=== PATIENT | female | born 1985 | race Two or more races ===

== ENCOUNTER 2017-05-05 07:52 | Inpatient (IN) | payer OTHER ==
[2017-05-03 13:22] VITALS: BMI 38.0
[2017-05-05] MEDS ORDERED: PNEUMOC 13-VAL CONJ-DIP CRM/PF 0.5 ML DISP.SYRIN IM ONE (08:40)
--- NOTE | 2017-05-05 09:42 | HP ---
Admitting History and Physical - Admission Chief Complaint: Morbid obesity History Source: Patient, Medical Record Limitations to Obtaining History: No Limitations - Past Medical History Cardiovascular: Yes: Hyperlipdemia Pulmonary: Yes: Asthma ...LMP: 04/18/17 Infectious Disease: Yes: STD's (txed for gc and chlamydia) Psych: Yes: Depression (was on lexopro) - Past Surgical History Past Surgical History: Yes: Cholecystectomy, - Smoking History Smoking history: Current some day smoker Have you smoked in the past 12 months: No Aproximately how many cigarettes per day: 5 - Alcohol/Substance Use Hx Alcohol Use: Yes (2-3 beer weekend) - Social History History of Recent Travel: No Home Medications - Allergies Allergies/Adverse Reactions: Allergies Allergy/AdvReac Type Severity Reaction Status Date / Time Penicillins Allergy Mild Rash Verified 05/05/17 08:50 seafood Allergy Severe Difficulty Uncoded 05/05/17 08:50 Breathing - Home Medications Home Medications: Ambulatory Orders Alprazolam [Xanax] 0.5 mg PO PRN PRN 05/03/17 Quetiapine Fumarate [Seroquel] 50 mg PO HS 05/03/17 Ibuprofen 200 mg PO PRN PRN 05/05/17 Family Disease History - Family Disease History Family History: Unremarkable Review of Systems - Review of Systems Constitutional: denies: Chills, Fever HENT: reports: No Symptoms Neck: reports: No Symptoms Cardiovascular: denies: Chest Pain Respiratory: denies: Cough Gastrointestinal: denies: Abdominal Pain Neurological: denies: Change in LOC Pain Intensity: 0 Physical Examination Vital Signs: Vital Signs Temperature 98.2 F 05/05/17 08:46 Pulse Rate 65 05/05/17 08:46 Respiratory Rate 20 05/05/17 08:46 Blood Pressure 109/55 05/05/17 08:46 O2 Sat by Pulse Oximetry (%) 100 05/05/17 08:45 Constitutional: Yes: Calm Eyes: Yes: Other Neck: Yes: Supple Cardiovascular: Yes: Regular Rate and Rhythm Respiratory: Yes: CTA Bilaterally Gastrointestinal: Yes: Soft, Abdomen, Obese. No: Tenderness Extremities: Yes: WNL Neurological: Yes: Alert, Oriented Problem List - Problems (1) Morbid obesity due to excess calories Code(s): E66.01 - MORBID (SEVERE) OBESITY DUE TO EXCESS CALORIES Assessment/Plan Laparoscopic possible open vertical sleeve gastrectomy possible liver biopsy upper endoscopy
[2017-05-05] MEDS ORDERED: fentaNYL CITRATE 250 MCG/5 ML VIAL ONE (09:50)
[2017-05-05] MEDS ORDERED: KETOROLAC TROMETHAMINE 30 MG/1 ML VIAL ONE (09:50)
[2017-05-05] MEDS ORDERED: DEXAMETHASONE SOD PHOSPHATE 4 MG/1 ML VIAL ONE (09:50)
[2017-05-05] MEDS ORDERED: MIDAZOLAM HCL 2 MG/2 ML SINGLE DOSE VIAL ONE (09:51)
[2017-05-05] MEDS ORDERED: PROPOFOL 20 ML ONE (09:51)
[2017-05-05] MEDS ORDERED: ROCURONIUM BROMIDE 50 MG/5 ML VIAL ONE ×2 (09:51→10:50)
[2017-05-05] MEDS ORDERED: SUCCINYLCHOLINE CHLORIDE 200 MG/10 ML VIAL ONE (09:51)
[2017-05-05] MEDS ORDERED: CLINDAMYCIN PHOSPHATE 900 MG/6 ML VIAL IVPB ONE (10:07)
[2017-05-05] MEDS ORDERED: NEOSTIGMINE METHYLSULFATE 0.5 MG/ML - 10 ML MDV ONE (11:34)
[2017-05-05] MEDS ORDERED: GLYCOPYRROLATE 0.2 MG/1 ML VIAL ONE (11:36)
[2017-05-05] MEDS ORDERED: BUPIVACAINE HCL/PF 0.5% (5MG/ML) 10 ML VIAL IJ ONE (11:44)
[2017-05-05] MEDS ORDERED: oxyCODONE HCL 5 MG TABLET PO PRN (12:16)
[2017-05-05] MEDS ORDERED: ONDANSETRON 4 MG/2 ML VIAL IVPUSH PRN (12:16)
[2017-05-05] MEDS ORDERED: PROMETHAZINE HCL 25 MG/1 ML VIAL IVPUSH PRN (12:16)
[2017-05-05] MEDS ORDERED: ONDANSETRON 4 MG/2 ML VIAL ONE (12:21)
[2017-05-05] MEDS ORDERED: ONDANSETRON 4 MG/2 ML VIAL IVPUSH ONE (12:27)
[2017-05-05] MEDS ORDERED: PROMETHAZINE HCL 25 MG/1 ML VIAL ONE (12:30)
[2017-05-05] MEDS ORDERED: LACTATED RINGERS SOLUTION 1,000 ML IV SCH (12:30)
[2017-05-05] MEDS ORDERED: PROMETHAZINE HCL 25 MG/1 ML VIAL IVPUSH ONE ×2 (12:32→12:47)
--- NOTE | 2017-05-05 12:45 | OP ---
Operative Note - Note: Operative Date: 05/05/17 Pre-Operative Diagnosis: Morbid obesity Operation: Laparoscopic vertical sleeve gastrectomy, wedge liver biopsy, EGD Post-Operative Diagnosis: Other (MOrbid obesity, heaptomegaly) Surgeon: Florentino Chacon Art Librarian: Maxx Quan Anesthesia: General Specimens Removed: Greater curvature of stomach. Left lobe liver biopsy Estimated Blood Loss (mls): 30 Drains & Tubes with Location: 36 Fr Bougie Operative Report Dictated: Yes
[2017-05-05 13:05] LABS: ALBUMIN 4.1 g/dl (3.4-5.0); ALK PHOS 38 U/L (45-117); ANION GAP 6 (8-16); BILIRUBIN,TOTAL 0.3 mg/dL (0.2-1.0); BLOOD UREA NITROGEN 12 mg/dL (7-18); CALCIUM 8.3 mg/dL (8.5-10.1); CHLORIDE 105 mmol/L (98-107); CO2 28 mmol/L (21-32); GLUCOSE,RANDOM 124 mg/dL (74-106); POTASSIUM 4.2 mmol/L (3.5-5.1); SGOT/AST 52 U/L (15-37); SGPT/ALT 67 U/L (12-78); SODIUM 139 mmol/L (136-145); TOT PROT 7.3 g/dl (6.4-8.2)
[2017-05-05] MEDS ORDERED: METOCLOPRAMIDE HCL INJECTION 10 MG/2 ML VIAL ONE (13:05)
[2017-05-05] MEDS ORDERED: FAMOTIDINE 20 MG/50 ML IVPB 20 MG/50 ML MG IVPB ONE (13:06)
[2017-05-05] MEDS ORDERED: ACETAMINOPHEN INJECTION 100 ML IVPB ONE (13:06)
[2017-05-05 13:08] LABS: BASO % 0.3 % (0-2.0); EOS % 1.8 % (0-4.5); HEMATOCRIT 38.2 % (32.4-45.2); HEMOGLOBIN 12.1 GM/dL (10.7-15.3); MCH 26.3 pg (25.7-33.7); MCHC 31.6 g/dl (32.0-36.0); MEAN CELL VOLUME 83.4 fl (80-96); NEUT % 73.9 % (42.8-82.8); PLATELET COUNT 193 K/MM3 (134-434); RBC 4.58 M/mm3 (3.60-5.2); RDW 14.4 % (11.6-15.6)
--- NOTE | 2017-05-05 13:32 | SPEC ---
DATE OF OPERATION: 05/05/2017 PREOPERATIVE DIAGNOSIS: Morbid obesity, asthma, hypercholesterolemia, and body mass index of 38.1. POSTOPERATIVE DIAGNOSIS: Morbid obesity, asthma, hypercholesterolemia, body mass index of 38.1, and hepatomegaly. PROCEDURE PERFORMED: Laparoscopic vertical sleeve gastrectomy, laparoscopic wedge liver biopsy, upper endoscopy/esophagogastroduodenoscopy. SURGEON: Florentino Chacon MD SPECIMEN: Greater curvature of the stomach, wedge liver biopsy of the left lobe of the liver. ESTIMATED BLOOD LOSS: 30 mL. DRAINS: None. BOUGIE: 36 Dominican. ANESTHESIA: GET. REASON FOR PROCEDURE: This 31-year-old female presented to the office for weight loss options. After describing the different options, she decided with a laparoscopic, possible open, vertical sleeve gastrectomy, possible wedge liver biopsy, possible endoscopy. The risks and benefits of the procedure were explained. RISKS AND BENEFITS: After describing the different options for weight loss management, the patient decided to proceed with a laparoscopic, possible open vertical sleeve gastrectomy. The patient was seen by the respective subspecialties and cleared for surgery. The risks and benefits of the procedure were explained. These included bleeding, infection, hernia, ID, DVT, PE, injury to surrounding structures including the liver, colon, bowel, spleen, esophagus, vessel injury, nerve injury, weight regain, gastric leak, staple line leak, sleeve leak, obstruction, vitamin deficiency, hair loss and as some of the possible complications. The patient understood and signed informed consent. DESCRIPTION OF PROCEDURE: The patient was placed supine on the operating room table. The patient underwent general endotracheal intubation. A He catheter was inserted. The arms were brought out at 90 degrees and secured. A footboard was placed and the legs were secured laterally with padding. The abdomen was prepped and draped in the usual sterile fashion. A timeout was performed. An incision was made in the left upper quadrant and a Veress needle inserted. Pneumoperitoneum was established. Subsequently, the Veress needle was removed and a 12-mm trocar was placed. The laparoscopic camera was then inserted and inspection of the abdominal cavity was performed. An incision was then made in the supraumbilical area and a 15-mm trocar was placed under direct visualization. A 5-mm trocar was then placed in the right upper quadrant and a 5-mm trocar was placed below the left subcostal margin. A stab wound was made in the subxiphoid area and a Amy clamp inserted and removed to dilate the tract. A Sudeep liver retractor was inserted. The post was secured at the bedside by the nursing staff. The patient was placed in steep reverse Trendelenburg position and the Sudeep liver retractor was used to secure the liver towards the anterior abdominal wall. The pylorus was identified and 6 cm proximal to it, the lesser sac was entered using the LigaSure device. All lateral attachments to the greater curvature of the stomach, including the short gastric vessels, were ligated using the LigaSure device toward the gastrosplenic and gastrophrenic ligaments. Once this was done in its entirety, it was confirmed that all tubes within the nasal or oropharyngeal cavity, including a temperature probe, was removed by Anesthesia. The bougie was then inserted by Anesthesia. Transection of the stomach was then begun staying adjacent to the bougie but away from the angularis. Transection of the stomach was performed near the portion of the stomach where the lesser sac was entered. Two laparoscopic Endo-MARY black seble were used at this location. Laparoscopic Endo MARY purple staple loads were then used for the remainder of the transection until the greater curvature of the stomach was fully transected. This was done staying close to the bougie. Care was taken to stay away from the angle of His cephalad. The staple line was then inspected. Hemostasis was identified. A leak test was then performed. It was clamped distally to the staple line. Irrigation solution was placed in the left upper quadrant and air was insufflated by Anesthesia into the sleeve. No leaks were identified. No obstruction was identified. This was done through the entirety of the staple line. At this point, the irrigation solution was suctioned and again, hemostasis was noted. A wedge liver biopsy was then performed. The left lobe of the liver was identified and a portion of the edge was grasped. Using electrocautery, a wedge of the liver was excised. This was removed and sent off the field as specimen. Hemostasis at the site of the wedge liver biopsy was attained using electrocautery. The 15-mm supraumbilical trocar was then removed and the greater curvature specimen removed from the site using a sponge stick schmidt. The specimen was inspected and a Veress needle inserted. The specimen insufflated adequately and no leak was identified. The staple line was noted to be intact. A Emigdio-Eliana device was then used to temporarily close the fascia with a 0 Vicryl suture at the site. The 15-mm trocar was then reinserted and the 12-mm trocar in the left upper quadrant was removed. The fascia at this site was then closed using the Emigdio-Eliana device with a 0 Vicryl suture. Again, hemostasis was noted. The Sudeep liver retractor was then removed under direct visualization. Pneumoperitoneum was desufflated and the fascial sutures were secured. Hemostasis was noted at all incision sites and Marcaine was injected at all incision sites. All incision sites were closed using 4-0 Biosyn. Sterile dressings were applied. In addition, endoscopy was performed at the end. The endoscope was inserted into the patient's mouth. The esophagus, stomach, GE junction, gastric pouch and staple line were inspected. Hemostasis was noted. No leak or obstruction was identified. The stomach was suctioned and the endoscope removed. The patient tolerated the procedure well and was transferred to the recovery room in stable condition with the He catheter intact. The patient was transferred to telemetry for further monitoring. Bindu [id number]
[2017-05-05] MEDS ORDERED: FAMOTIDINE 20 MG PREMIXED IVPB IVPB ONE (13:36)
[2017-05-05] MEDS ORDERED: ACETAMINOPHEN 1000 MG/100 ML VIAL (NON FORMULARY) IVPB ONE (13:37)
[2017-05-05] MEDS ORDERED: HYDROmorphone HCL CARPU-JECT 2 MG/1 ML DISP.SYRIN ONE (13:38)
[2017-05-05] MEDS ORDERED: HYDROmorphone HCL CARPU-JECT 2 MG/1 ML DISP.SYRIN IVPUSH ONE ×2 (13:56→14:15)
[2017-05-05] MEDS ORDERED: METOCLOPRAMIDE HCL INJECTION 10 MG/2 ML VIAL IVPUSH ONE (15:15)
[2017-05-05] MEDS: SODIUM CHLORIDE 1,000 ML IV SCH (16:00)
[2017-05-05] MEDS: ONDANSETRON 4 MG/2 ML VIAL IVPUSH SCH ×2 (17:12→21:22)
[2017-05-05] MEDS ORDERED: FLU VACCINE QUAD 60 MCG/0.5 ML (MDV 17-18) IM ONE (18:30)
[2017-05-05] MEDS ORDERED: PNEUMOCOCCAL 23 VACCINE 0.5 ML VIAL IM ONE (18:30)
[2017-05-05] MEDS: ACETAMINOPHEN 1000 MG/100 ML VIAL (NON FORMULARY) IVPB SCH (18:34)
[2017-05-05] MEDS: METOCLOPRAMIDE HCL INJECTION 10 MG/2 ML VIAL IVPUSH SCH (18:34)
[2017-05-05] MEDS: ENOXAPARIN NA (PORCINE) 40 MG/0.4 ML DISP.SYRIN SQ SCH (21:22)
[2017-05-05] MEDS: FAMOTIDINE 20 MG/50 ML IVPB 20 MG/50 ML MG IVPB SCH (21:22)
[2017-05-05] MEDS: HYDROmorphone HCL CARPU-JECT 1 MG/1 ML DISP.SYRIN IVPB PRN (21:25)
[2017-05-06] MEDS: ACETAMINOPHEN 1000 MG/100 ML VIAL (NON FORMULARY) IVPB SCH ×2 (00:36→06:02)
[2017-05-06] MEDS: METOCLOPRAMIDE HCL INJECTION 10 MG/2 ML VIAL IVPUSH SCH ×4 (00:38→20:36)
[2017-05-06] MEDS: ONDANSETRON 4 MG/2 ML VIAL IVPUSH SCH ×6 (00:38→20:37)
[2017-05-06] MEDS: HYDROmorphone HCL CARPU-JECT 1 MG/1 ML DISP.SYRIN IVPB PRN ×5 (03:25→20:38)
[2017-05-06 08:17] LABS: HEMATOCRIT 26.4 % (32.4-45.2); HEMOGLOBIN 8.5 GM/dL (10.7-15.3); MCH 26.4 pg (25.7-33.7); MCHC 32.1 g/dl (32.0-36.0); MEAN CELL VOLUME 82.4 fl (80-96); PLATELET COUNT 170 K/MM3 (134-434); WHITE BLOOD COUNT 11.9 K/mm3 (4.0-10.0)
[2017-05-06] MEDS: FAMOTIDINE 20 MG/50 ML IVPB 20 MG/50 ML MG IVPB SCH ×2 (09:13→22:02)
[2017-05-06] MEDS: ENOXAPARIN NA (PORCINE) 40 MG/0.4 ML DISP.SYRIN SQ SCH ×2 (09:13→22:02)
[2017-05-06 09:18] LABS: ALBUMIN 3.5 g/dl (3.4-5.0); ANION GAP 7 (8-16); BLOOD UREA NITROGEN 9 mg/dL (7-18); CALCIUM 7.3 mg/dL (8.5-10.1); CHLORIDE 105 mmol/L (98-107); CO2 26 mmol/L (21-32); GLUCOSE,RANDOM 91 mg/dL (74-106); POTASSIUM 3.5 mmol/L (3.5-5.1); SODIUM 138 mmol/L (136-145)
[2017-05-06 09:23] LABS: ALK PHOS 30 U/L (45-117); BILIRUBIN,TOTAL 0.8 mg/dL (0.2-1.0); CREATININE 0.8 mg/dL (0.55-1.02); SGOT/AST 86 U/L (15-37); SGPT/ALT 109 U/L (12-78)
[2017-05-06 11:26] LABS: HEMATOCRIT 26.2 % (32.4-45.2); HEMOGLOBIN 8.4 GM/dL (10.7-15.3); MCH 26.3 pg (25.7-33.7); MCHC 32.1 g/dl (32.0-36.0); MEAN CELL VOLUME 82.1 fl (80-96); MEAN PLT VOLUME 8.5 fl (7.5-11.1); PLATELET COUNT 169 K/MM3 (134-434); RBC 3.19 M/mm3 (3.60-5.2); RDW 13.9 % (11.6-15.6); WHITE BLOOD COUNT 11.9 K/mm3 (4.0-10.0)
--- NOTE | 2017-05-06 12:10 | PN ---
Progress Note (short form) - Note Progress Note: POD #1 Alert. Doing well. C/o incisional tenderness. Adequate pain control via prn meds. Denies n/v/f/c, CP, palpitations or SOB. Afebrile. AVSS. UGI 05/06/17: no leak, extravastion or gastric outlet obstruction Gen: nad. ABD: morbidly obese habitus. All surgical ports c/d/i LE: SCDs bilat. Soft. NT. Problem List - Problems (1) Morbid obesity due to excess calories Assessment/Plan: POD #1 s/p Laparoscopic vertical sleeve gastrectomy, wedge liver biopsy, EGD Bariatric stage 1 diet ordered OOB and cont to ambulate. Pain meds prn DC planning Code(s): E66.01 - MORBID (SEVERE) OBESITY DUE TO EXCESS CALORIES
--- NOTE | 2017-05-06 13:33 | PATH ---
Surgical Pathology Report Patient Name: KEVIN WISE [facility]. Rec. #: [id number] /Age/Gender: 1985 (Age: 31) / F Account: [id number] Location: 4 W TELEMETRY U Taken: 05/05/2017 Received: 05/05/2017 Reported: 05/06/2017 Physicians: Florentino Chacon M.D. Specimen(s) Received A: LIVER BIOPSY B: GREATER CURVATURE OF STOMACH Clinical History Morbid obesity Final Diagnosis A. 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 IRON STAIN IS NEGATIVE FOR SIDEROSIS. B. STOMACH, GREATER CURVATURE, SLEEVE GASTRECTOMY: PORTION OF STOMACH FOCAL MILD CHRONIC GASTRITIS. IMMUNOSTAIN FOR H. PYLORI IS NEGATIVE. Electronically Signed Dario Dan M.D. Gross Description A. Received in formalin labeled "liver biopsy," is a 2.7 x 1.8 x 0.9 cm haji-pink, irregular portion of liver tissue. The specimen is serially sectioned and entirely submitted in 2 cassettes. B. Received in formalin, labeled "greater curvature of stomach," is a 139 gram, 18.5 x 4.5 x 3.0 cm. portion of stomach with a stapled margin of resection. The serosa is haji-turner with minimal attached fat. The mucosa is haji-pink with normal folds. No mucosal masses are identified. Outreach Nurse sections are submitted in one cassette. /05/05/2017 saudi05/05/2017
[2017-05-06] MEDS: SODIUM CHLORIDE 1,000 ML IV SCH (17:06)
--- NOTE | 2017-05-06 19:59 | PN ---
Progress Note (short form) - Note Progress Note: POD 1 Pain controlled No nausea Vital Signs Period Temp Pulse Resp BP Sys/Gallo Pulse Ox Last 24 Hr 98.8 F-99.9 F 74-94 20-22 98-128/53-72 98-100 Abd soft, ND, NT CBC,CMP WBC 11.9 K/mm3 (4.0-10.0) H 05/06/17 11:08 RBC 3.19 M/mm3 (3.60-5.2) L 05/06/17 11:08 Hgb 8.4 GM/dL (10.7-15.3) L 05/06/17 11:08 Hct 26.2 % (32.4-45.2) L 05/06/17 11:08 MCV 82.1 fl (80-96) 05/06/17 11:08 MCH 26.3 pg (25.7-33.7) 05/06/17 11:08 MCHC 32.1 g/dl (32.0-36.0) 05/06/17 11:08 RDW 13.9 % (11.6-15.6) 05/06/17 11:08 Plt Count 169 K/MM3 (134-434) 05/06/17 11:08 MPV 8.5 fl (7.5-11.1) 05/06/17 11:08 Neutrophils % 73.9 % (42.8-82.8) 05/05/17 12:15 Lymphocytes % 22.0 % (8-40) 05/05/17 12:15 Monocytes % 2.0 % (3.8-10.2) L 05/05/17 12:15 Eosinophils % 1.8 % (0-4.5) 05/05/17 12:15 Basophils % 0.3 % (0-2.0) 05/05/17 12:15 Sodium 138 mmol/L (136-145) 05/06/17 05:25 Potassium 3.5 mmol/L (3.5-5.1) 05/06/17 05:25 Chloride 105 mmol/L (98-107) 05/06/17 05:25 Carbon Dioxide 26 mmol/L (21-32) 05/06/17 05:25 Anion Gap 7 (8-16) L 05/06/17 05:25 BUN 9 mg/dL (7-18) D 05/06/17 05:25 Creatinine 0.8 mg/dL (0.55-1.02) 05/06/17 05:25 Creat Clearance w eGFR > 60 (>60) 05/06/17 05:25 POC Glucometer 143 UNITS (80-120) 05/06/17 05:49 Random Glucose 91 mg/dL (74-106) D 05/06/17 05:25 Calcium 7.3 mg/dL (8.5-10.1) L 05/06/17 05:25 Total Bilirubin 0.8 mg/dL (0.2-1.0) D 05/06/17 05:25 AST 86 U/L (15-37) H D 05/06/17 05:25 ALT 109 U/L (12-78) H D 05/06/17 05:25 Alkaline Phosphatase 30 U/L (45-117) L D 05/06/17 05:25 Total Protein 6.0 g/dl (6.4-8.2) L 05/06/17 05:25 Albumin 3.5 g/dl (3.4-5.0) 05/06/17 05:25 Hemoglobin 12->8.5->8.4 UGI: no leak/obstruction Serial H/H Clears Ambulate Problem List - Problems (1) Morbid obesity due to excess calories Code(s): E66.01 - MORBID (SEVERE) OBESITY DUE TO EXCESS CALORIES
[2017-05-06 20:13] LABS: HEMATOCRIT 26.9 % (32.4-45.2); HEMOGLOBIN 8.7 GM/dL (10.7-15.3); MCH 26.7 pg (25.7-33.7); MCHC 32.4 g/dl (32.0-36.0); MEAN CELL VOLUME 82.5 fl (80-96); MEAN PLT VOLUME 9.1 fl (7.5-11.1); PLATELET COUNT 169 K/MM3 (134-434); RBC 3.26 M/mm3 (3.60-5.2); RDW 14.4 % (11.6-15.6); WHITE BLOOD COUNT 8.7 K/mm3 (4.0-10.0)
[2017-05-06] MEDS ORDERED: QUEtiapine FUMARATE 25 MG TABLET (FP) PO SCH (22:45)
[2017-05-06] MEDS ORDERED: ALPRAZolam 0.25 MG TABLET PO SCH (22:45)
[2017-05-07] MEDS: HYDROmorphone HCL CARPU-JECT 1 MG/1 ML DISP.SYRIN IVPB PRN ×4 (01:13→12:22)
[2017-05-07] MEDS: ONDANSETRON 4 MG/2 ML VIAL IVPUSH SCH ×3 (01:14→09:14)
[2017-05-07] MEDS: METOCLOPRAMIDE HCL INJECTION 10 MG/2 ML VIAL IVPUSH SCH ×2 (01:14→08:05)
[2017-05-07] MEDS: SODIUM CHLORIDE 1,000 ML IV SCH (01:16)
[2017-05-07 09:17] LABS: HEMATOCRIT 25.9 % (32.4-45.2); HEMOGLOBIN 8.3 GM/dL (10.7-15.3); MCH 26.5 pg (25.7-33.7); MCHC 32.2 g/dl (32.0-36.0); MEAN CELL VOLUME 82.1 fl (80-96); MEAN PLT VOLUME 8.3 fl (7.5-11.1); PLATELET COUNT 146 K/MM3 (134-434); RBC 3.15 M/mm3 (3.60-5.2); RDW 13.9 % (11.6-15.6); WHITE BLOOD COUNT 7.3 K/mm3 (4.0-10.0)
[2017-05-07] MEDS: FAMOTIDINE 20 MG/50 ML IVPB 20 MG/50 ML MG IVPB SCH (09:24)
[2017-05-07 11:16] VITALS: BP 124/70; PULSE 85; TEMP 98.9
== END 2017-05-07 13:45 | disposition home or self-care (01) | DRG 403 ==
LOC: JSAMEDAYSX 07:52 → J4W 15:45 → EDSTATUS 16:30
PROVIDERS: ADMIT Surgery; ATTEND Surgery
PROC: 0DB64Z3 Excision of Stomach, Percutaneous Endoscopic Approach, Vertical (ICD-10-PCS; principal; 2017-05-05 09:30)
PROC: 0FB24ZX Excision of Left Lobe Liver, Percutaneous Endoscopic Approach, Diagnostic (ICD-10-PCS; 2017-05-05 09:30)
PROC: 0DJ08ZZ Inspection of Upper Intestinal Tract, Via Natural or Artificial Opening Endoscopic (ICD-10-PCS; 2017-05-05 09:30)
DX: E66.01 Morbid (severe) obesity due to excess calories (principal); Z68.38 Body mass index [BMI] 38.0-38.9, adult; R16.0 Hepatomegaly, not elsewhere classified; K29.50 Unspecified chronic gastritis without bleeding; K75.81 Nonalcoholic steatohepatitis (NASH); E78.5 Hyperlipidemia, unspecified; Z72.0 Tobacco use
CPT/HCPCS: 36415; 74241-TC; 80053; 84703; 85025; 85027; 86850; 86900; 86901; 88305-TC; 88307-TC; 94010; 94760

== ENCOUNTER 2018-07-23 18:14 | Emergency (ER) | payer OTHER ==
[2018-07-23 18:20] VITALS: BP 98/57; TEMP 98.2; BMI 23.1
[2018-07-23] MEDS ORDERED: SODIUM CHLORIDE 0.9% 500 ML INFUS.BAG IV ONE (18:51)
--- NOTE | 2018-07-23 18:51 | PDOC ---
History of Present Illness - General Chief Complaint: Weakness Stated Complaint: DIZZY PAST OUT Time Seen by Provider: 07/23/18 18:28 - History of Present Illness Initial Comments: Lori Fernando is a 32yo woman with a PMH of asthma, bipolar disorder, anxiety who presents with a fall today and chronic generalized weakness since a sleeve gastrectomy one year ago. She presents with her and daughter. Ms Fernando states that she always feels weak, and she believes that this is due to eating very little throughout the day sine her surgery. Her confirms that she starts vomiting if she "tries to eat more than 2 bites" at any time. Over the past year, she has lost a total of 110lb including 2-5lb in the past month. She followed with her surgeon for 6 months but was told she was doing well and did not need to schedule any more appointments. She states that in a typical day, she eats an egg for breakfast, "2 bites" of turkey for lunch, and rice/beans for dinner. She states she does not have time to eat more frequently. Today, she was carrying her daughter when she felt very weak and fell to the ground. She denies any LOC or head injury. She landed on her b/l knees and left hand, and she has abrasions due to the fall. Following the fall, the family went to [facility], and her was concerned that she only ate "2 bites." She had a similar episode while on vacation about a month ago. She has never truly fainted and denies ever having any LOC. She was not evaluated following the previous episode, and she recently changed PMD's. She was last seen about 3 months ago. Ms Fernando would like to have her vitamin levels, iron, and cholesterol checked because she is concerned that these are causing her weakness. Past History - Past Medical History Allergies/Adverse Reactions: Allergies Allergy/AdvReac Type Severity Reaction Status Date / Time Penicillins Allergy Mild Rash Verified 07/23/18 18:50 seafood Allergy Severe Difficulty Uncoded 07/23/18 18:50 Breathing Home Medications: Ambulatory Orders Alprazolam [Xanax] 0.5 mg PO PRN PRN 05/03/17 Quetiapine Fumarate [Seroquel] 50 mg PO HS 05/03/17 Famotidine [Pepcid] 20 mg PO BID #60 tablet 05/05/17 Ibuprofen 200 mg PO PRN PRN 05/05/17 Oxycodone HCl/Acetaminophen [Percocet 5-325 mg Tablet] 1 - 2 tab PO Q6H #28 tab MDD 4 05/05/17 Anemia: No Asthma: No Cancer: No Cardiac Disorders: No CVA: No COPD: No CHF: No Dementia: No Diabetes: No GI Disorders: No Disorders: No HTN: No Hypercholesterolemia: No Liver Disease: No Psychiatric Problems: Yes Seizures: No Thyroid Disease: No - Surgical History Abdominal Surgery: No Cholecystectomy: Yes Gastric Stapling: Yes (2017) - Reproductive History (#): 5 Para: 3 Spontaneous : 1 - Immunization History Immunization Up to Date: Yes - Suicide/Smoking/Psychosocial Hx Smoking Status: Yes Smoking History: Current every day smoker Have you smoked in the past 12 months: No Number of Cigarettes Smoked Daily: 4 Information on smoking cessation initiated: No Hx Alcohol Use: Yes (2-3 beer weekend) Drug/Substance Use Hx: No Substance Use Type: None Hx Substance Use Treatment: No Review of Systems - Review of Systems Comments:: General: No fevers, no chills, +significant weight loss (intentional), + generalized weakness HEENT: No changes in vision, no changes in hearing, no congestion, no sore throat CV: No chest pain, no palpitations, no LE edema Pulm: No SOB, no cough, no wheezing GI: +Freqent vomiting, no change in bowel habits, no melena : No frequency, no urgency, no dysuria Musc: No back pain, no joint swelling, no recent injury Skin: No rash, no lesions, no erythema Endo: No excessive thirst, no heat/cold intolerance Heme: No unusual bruising or bleeding, no swollen glands Neuro: No LOC, no numbness/tingling, no focal weakness Vasc: No claudication Psych: No recent change in mood, no SI or HI. h/o bipolar, anxiety *Physical Exam - Vital Signs Last Vital Signs Temp Pulse Resp BP Pulse Ox 98.2 F 81 18 98/57 L 99 07/23/18 18:16 07/23/18 18:16 07/23/18 18:16 07/23/18 18:16 07/23/18 18:16 - Physical Exam Comments: General: Comfortable, no acute distress HEENT: PERRL, EOMI, MMM, voice normal, normal neck ROM Cards: RRR, no murmur appreciated Pulm: Comfortable on room air, clear to auscultation bilaterally Abd: Soft, nontender, nondistended : No CVA tenderness Ext: Superficial abrasions on dorsal surface of L hand, b/l knees. No LE edema. ROM intact. Strength 5/5 and equal bilaterally Vasc: Extremities WWP Skin: Normal color, no rashes. Abrasions as above Neuro: A&Ox3, CN grossly intact, normal speech, motor/sensory grossly intact and symmetric Psych: Mood appropriate to situation Moderate Sedation - Procedure Monitoring Vital Signs: Procedure Monitoring Vital Signs Temperature 98.2 F 07/23/18 18:16 Pulse Rate 81 07/23/18 18:16 Respiratory Rate 18 07/23/18 18:16 Blood Pressure 98/57 L 07/23/18 18:16 O2 Sat by Pulse Oximetry (%) 99 07/23/18 18:16 ED Treatment Course - LABORATORY CBC & Chemistry Diagram: 07/23/18 19:00 07/23/18 19:00 Medical Decision Making - Medical Decision Making 07/23/18 18:48 Lori Fernando is a 32yo woman with a PMH of asthma, bipolar disorder, anxiety who presents with a fall today and generalized weakness that she feels is secondary to significant weight loss (110lb) and low PO intake following a sleeve gastrectomy one year ago. She reports frequent vomiting if she "tries to eat more than a few bites," most recently at [employer] [place] this afternoon. - Reports only 2-5lb weight loss in the past month - Benign physical exam, no focal complaints or specific symptoms - Given vomiting, low PO intake will check CBC and chemistry to eval for anemia or electrolyte abnormalities - BP slightly low, may be mildly dehydrated, will give 1L NS and reassess - EKG to r/o arrhythmia, reports possible pre-syncopal event today, fell due to weakness - States she can not be ("everything was burned out") but will check serum preg 07/23/18 19:28 - CBC completed, no anemia or leukocytosis. Hgb 11. - Serum preg negative - EKG reviewed. NSR with HR 63, normal axis, no ST or t-wave changes. Normal EKG 07/23/18 20:17 - Chemistry reviewed. No concerning electrolyte abnormalities - Discussed home care and follow up at length with Ms Fernando and her . Both state understanding. Discussed with Dr Luna. Joan Siddiqi PGY1 *DC/Admit/Observation/Transfer Diagnosis at time of Disposition: Generalized weakness - Discharge Dispostion Disposition: HOME Condition at time of disposition: Stable Decision to Admit order: No - Referrals Referrals: [facility] [place] [Provider Group] - Patient Instructions Printed Discharge Instructions: Balanced Diet Additional Instructions: Discharge Instructions: You were seen in the emergency department for weakness and dizziness. You had blood checked for anemia or electrolyte abnormalities, but your results were normal. You had an EKG to evaluate your heart rhythm, which was also normal. Home Care and Follow Up: - Continue to take all of your regular medications at home - Keep track of what you have eaten when you have episodes of vomiting. Also keep track of the time of day. You may notice a pattern that you can discuss with your doctor. - Try to eat more frequent meals, 5-6 times per day, rather than just three times - eat a small amount roughly every 2-3 hours. - Eat healthy foods such as whole fruits and vegetables, whole grains, and lean protein. - Make sure you stay well hydrated even if you are not eating much. Small, frequent sips throughout the day is just as effective as a large glass of water. Try to drink a full cup (8oz) of water every 1-2 hours. - You might want to avoid oily/greasy, spicy foods, dairy products, caffeine, and alcohol until you determine which foods are irritating your stomach. - Make an appointment to see your primary doctor within the next week. If you need to establish care with a new doctor, you have been referred to the [facility]. - You should schedule an appointment to follow up with your surgeon within the next 1-2 weeks as well. Your bariatric surgeon is an expert in complications and difficulties with sleeve gastrectomy, and he/she might have suggestions for your frequent vomiting. - Seek immediate medical care if you have worsening of your symptoms, you are unable to keep any food down, you become dehydrated, or you faint or have a head injury from falling. Print Language: BULGARIAN - Post Discharge Activity
[2018-07-23 18:57] VITALS: PULSE 80
[2018-07-23 19:08] LABS: BASO % 0.8 % (0-2.0); EOS % 2.7 % (0-4.5); HEMOGLOBIN 11.1 GM/dL (10.7-15.3); LYMPH % 30.8 % (8-40); MCH 27.5 pg (25.7-33.7); MCHC 33.6 g/dl (32.0-36.0); MEAN CELL VOLUME 81.6 fl (80-96); MEAN PLT VOLUME 8.5 fl (7.5-11.1); MONO % 6.8 % (3.8-10.2); NEUT % 58.9 % (42.8-82.8); PLATELET COUNT 328 K/MM3 (134-434); RBC 4.04 M/mm3 (3.60-5.2); RDW 14.3 % (11.6-15.6)
--- NOTE | 2018-07-23 19:30 | PDOC ---
Attending Attestation - HPI HPI: 07/23/18 19:31 The patient is a 32 year old female, with a significant past medical history of gastric sleeve (2018), who presents to the emergency department s/p near syncope. As per patient, she was walking down the stairs when she had an episode of near syncope. She notes a similar episode a month ago. She denies recent nausea, vomit, diarrhea or constipation. She denies recent dysuria, frequency, urgency or hematuria. She denies recent chest pain or shortness of breath. Allergies: Penicillins and seafood. Past surgical history: Cholecystectomy. Gastric sleeve (2018). Social history: Smoker. Alcohol usage. Primary Care Physician: [facility] - Physicial Exam PE: 07/23/18 19:31 GENERAL: Well-appearing, well-nourished. No apparent distress. HEENT: Normocephalic, atraumatic. PERRL, EOM intact. CARDIOVASCULAR: Normal S1, S2. Regular rate and rhythm. PULMONARY: Clear to auscultation bilaterally. ABDOMEN: Soft, non-distended, non-tender. EXTREMITIES: Normal ROM in all four extremities. No gross deformities. SKIN: +Abrasion to the left hand and diffuse abrasions to the blt knees. Warm, dry. No rash NEUROLOGICAL: No focal neurological deficits. <Mojgan Perez - Last Filed: 07/23/18 19:31> - Resident Resident Name: Joan Siddiqi - ED Attending Attestation I have performed the following: I have examined & evaluated the patient, The case was reviewed & discussed with the resident, I agree w/resident's findings & plan, Exceptions are as noted - Medical Decision Making 07/23/18 19:41 32 yo female who has gastric bariatric surgery last May p/w an episode of dizziness and fell walking [place] the steps at [employer] carrying her 2 yo child. She had 4 inch heels on. No LOC,no chest pain , no shortness of breath. she states she has had frequent episodes of vomiting and complains she can only eat little amounts of food Last year she weighed 241 pounds and today weighs about 140 pounds 07/23/18 20:26 labs reviewed,electrolytes wnl pt encouraged to see Dr Chacon and see a health sciences program coordinator to help plan her meals 07/23/18 20:37 <Lisseth Luna - Last Filed: 07/23/18 20:39> Heart Score/ECG Review - Electrocardiogram EKG: Normal - Age Age: </= 45 - Risk Factors Based on the list above the patient has:: No risk factors known - Troponin Troponin: </= normal limit - ECG Intrepretation Rhythm: Regular Rhythm - Hayden Hayden: Normal - P and WV Prominent R with upright T in V1 (true posterior ID): No Delta Wave(s) Present: No WPW: No - QRS Poor R Wave Progression: No Q Wave Present: No - ST and T Early Repolarization: No Non Specific ST-T Wave changes: No Flattened T Waves: No Prolonged Q-T Interval: No - ECG Impressions Normal ECG: Yes Non-specific ST Elevation: No Ischemic Changes: No Bradycardia: No Torsades vignesh Pointes: No WPW: No <Lisseth Luna - Last Filed: 07/23/18 20:39> Attestations - Attestations 07/23/18 19:32 Documentation prepared by Mojgan Perez, acting as medical claims assistant for Lisseth Luna MD. <Mojgan Perez - Last Filed: 07/23/18 19:31>
[2018-07-23] MEDS ORDERED: BACITRACIN 15 GM TUBE TOPICAL OINTMENT TP ONE (19:53)
[2018-07-23] MEDS ORDERED: BACITRACIN 0.9 GM PACKET ONE (20:03)
[2018-07-23 20:06] LABS: ALBUMIN 3.8 g/dl (3.4-5.0); ALK PHOS 47 U/L (45-117); ANION GAP 7 MMOL/L (8-16); BILIRUBIN,TOTAL < 0.1 mg/dL (0.2-1); BLOOD UREA NITROGEN 17 mg/dL (7-18); CALCIUM 8.4 mg/dL (8.5-10.1); CHLORIDE 108 mmol/L (98-107); CO2 27 mmol/L (21-32); CREATININE 0.8 mg/dL (0.55-1.3); GLUCOSE,RANDOM 85 mg/dL (74-106); MAGNESIUM 2.5 mg/dL (1.8-2.4); PHOSPHOROUS 3.3 mg/dL (2.5-4.9); POTASSIUM 3.7 mmol/L (3.5-5.1); SGOT/AST 13 U/L (15-37); SGPT/ALT 17 U/L (13-61); SODIUM 142 mmol/L (136-145)
--- NOTE | 2018-07-24 10:12 | EKG ---
Test Reason : Blood Pressure : / mmHG Vent. Rate : 063 BPM Atrial Rate : 063 BPM P-R Int : 164 ms QRS Dur : 094 ms QT Int : 412 ms P-R-T Axes : 014 073 056 degrees QTc Int : 421 ms NORMAL SINUS RHYTHM NORMAL ECG WHEN COMPARED WITH ECG OF 24-JAN-2017 09:56, NO SIGNIFICANT CHANGE WAS FOUND Confirmed by ROVERTO ROLON MD ([id number]) on 07/24/2018 10:12:28 AM Referred By: Confirmed By:ROVERTO ROLON MD
== END 2018-07-23 20:37 | disposition home or self-care (01) ==
LOC: JER 18:14
DX: R53.1 Weakness (principal); F31.9 Bipolar disorder, unspecified; F41.9 Anxiety disorder, unspecified; J45.909 Unspecified asthma, uncomplicated; Z98.84 Bariatric surgery status
CPT/HCPCS: 36415; 80053; 83735; 84100; 84703; 85025; 93005; 93010; 99281-25

== ENCOUNTER 2018-08-13 13:38 | Emergency (ER) | payer OTHER ==
[2018-08-13 13:58] VITALS: BMI 22.6
[2018-08-13] MEDS ORDERED: ACETAMINOPHEN 500 MG TABLET (FP) PO ONE (14:14)
[2018-08-13] MEDS ORDERED: DIPHTH,PERTUSS(ACELL),TET 0.5 ML DISP.SYRIN IM ONE ×2 (14:14→14:31)
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
[2018-08-13] MEDS ORDERED: ACETAMINOPHEN 325 MG TABLET (FP) ONE (14:30)
[2018-08-13 16:13] LABS: BASO % 0.4 % (0-2.0); EOS % 0.7 % (0-4.5); HEMATOCRIT 33.5 % (32.4-45.2); HEMOGLOBIN 11.1 GM/dL (10.7-15.3); LYMPH % 13.4 % (8-40); MCHC 33.1 g/dl (32.0-36.0); MEAN CELL VOLUME 81.4 fl (80-96); MEAN PLT VOLUME 9.1 fl (7.5-11.1); MONO % 6.1 % (3.8-10.2); NEUT % 79.4 % (42.8-82.8); PLATELET COUNT 209 K/MM3 (134-434); RBC 4.11 M/mm3 (3.60-5.2); RDW 15.2 % (11.6-15.6); WHITE BLOOD COUNT 11.7 K/mm3 (4.0-10.0)
[2018-08-13 16:50] LABS: ALK PHOS 39 U/L (45-117); ANION GAP 6 MMOL/L (8-16); BILIRUBIN,TOTAL 0.4 mg/dL (0.2-1); BLOOD UREA NITROGEN 9 mg/dL (7-18); CALCIUM 8.5 mg/dL (8.5-10.1); CHLORIDE 109 mmol/L (98-107); CO2 23 mmol/L (21-32); CREATININE 0.8 mg/dL (0.55-1.3); GLUCOSE,RANDOM 91 mg/dL (74-106); POTASSIUM 3.8 mmol/L (3.5-5.1); SGOT/AST 15 U/L (15-37); SGPT/ALT 20 U/L (13-61); SODIUM 138 mmol/L (136-145)
[2018-08-13 18:00] VITALS: BP 117/68; PULSE 78; TEMP 98
[2018-08-13] MEDS ORDERED: KETOROLAC TROMETHAMINE 30 MG/1 ML VIAL IVPUSH ONE (18:14)
[2018-08-13] MEDS ORDERED: KETOROLAC TROMETHAMINE 15 MG/ML VIAL ONE (18:19)
--- NOTE | 2018-08-14 10:31 | EKG ---
Test Reason : Blood Pressure : / mmHG Vent. Rate : 071 BPM Atrial Rate : 071 BPM P-R Int : 152 ms QRS Dur : 086 ms QT Int : 418 ms P-R-T Axes : 049 068 049 degrees QTc Int : 454 ms NORMAL SINUS RHYTHM NORMAL ECG WHEN COMPARED WITH ECG OF 23-JUL-2018 19:03, NO SIGNIFICANT CHANGE WAS FOUND Confirmed by ROSE MARY SCHMIDT MD ([id number]) on 08/14/2018 10:30:49 AM Referred By: Confirmed By:ROSE MARY SCHMIDT MD
== END 2018-08-13 18:45 | disposition home or self-care (01) ==
LOC: JER 13:38
PROC: 3E0233Z Introduction of Anti-inflammatory into Muscle, Percutaneous Approach (ICD-10-PCS; principal; 2018-08-13)
PROC: 3E0234Z Introduction of Serum, Toxoid and Vaccine into Muscle, Percutaneous Approach (ICD-10-PCS; 2018-08-13)
DX: M54.2 Cervicalgia (principal); M54.9 Dorsalgia, unspecified; Y04.2XXA Assault by strike against or bumped into by another person, initial encounter; Y93.89 Activity, other specified; Y92.038 Other place in apartment as the place of occurrence of the external cause; Y99.8 Other external cause status; Y07.499 Other family member, perpetrator of maltreatment and neglect
CPT/HCPCS: 36415; 70450-TC; 80053; 80307; 84703; 85025; 90471; 90715; 93005; 93010; 96372; 99285-25

== ENCOUNTER 2018-10-14 12:14 | Emergency (ER) | payer OTHER | END 2018-10-14 18:00 | disposition home or self-care (01) | LOC: JER 12:14 ==

== ENCOUNTER 2018-12-26 21:44 | Emergency (ER) | payer OTHER ==
--- NOTE | 2018-12-26 21:53 | PDOC ---
Rapid Medical Evaluation Time Seen by Provider: 12/26/18 21:48 Medical Evaluation: Allergies Allergy/AdvReac Type Severity Reaction Status Date / Time Penicillins Allergy Mild Rash Verified 08/13/18 13:58 seafood Allergy Severe Difficulty Uncoded 08/13/18 13:58 Breathing 12/26/18 21:48 Pt presents to the ER for brown discharge for 2 days. Pt states she is three weeks . Denies abdominal pain or bright red blood from the vaginal canal. Pt states LMP was 720. States positive test done at [facility]. Exam: NAD, ambulatory Orders: labs, tvus, urine Pt to proceed to the ER for further evaluation Discharge Disposition - Diagnosis Vaginal discharge - Referrals - Patient Instructions - Post Discharge Activity
[2018-12-26 21:54] VITALS: BP 116/62; PULSE 88; TEMP 98.2; BMI 26.6
--- NOTE | 2018-12-26 22:09 | PDOC ---
History of Present Illness - History of Present Illness Initial Comments: 33 year old [id number] female 4 weeks by LMP presenting with brownish discharge for the past few days. Denies fevers, chills, nausea, vomiting, diarrhea, or other symptoms. She has not had an US for this . She has no other medical problems. 12/26/18 22:47 <Nichole Haney - Last Filed: 12/27/18 05:16> <Jeison Hendrix - Last Filed: 12/27/18 06:20> - General Chief Complaint: Vaginal Bleeding Stated Complaint: THREE WKS /VAGINAL BLEEED Time Seen by Provider: 12/26/18 21:48 Past History - Past Medical History Anemia: No Asthma: No Cancer: No Cardiac Disorders: No CVA: No COPD: No CHF: No Dementia: No Diabetes: No GI Disorders: No Disorders: No HTN: No Hypercholesterolemia: No Liver Disease: No Psychiatric Problems: Yes (anxiety, depression and bipolar) Seizures: No Thyroid Disease: No - Surgical History Abdominal Surgery: No Cholecystectomy: Yes Gastric Stapling: Yes (sleeve 2018) - Reproductive History (#): 5 Para: 3 Spontaneous : 1 - Immunization History Immunization Up to Date: Yes - Suicide/Smoking/Psychosocial Hx Smoking Status: Yes Smoking History: Current every day smoker Have you smoked in the past 12 months: Yes Number of Cigarettes Smoked Daily: 5 Information on smoking cessation initiated: No Hx Alcohol Use: No Drug/Substance Use Hx: No Substance Use Type: None Hx Substance Use Treatment: No <Nichole Haney - Last Filed: 12/27/18 05:16> <Jeison Hendrix - Last Filed: 12/27/18 06:20> - Past Medical History Allergies/Adverse Reactions: Allergies Allergy/AdvReac Type Severity Reaction Status Date / Time Penicillins Allergy Mild Rash Verified 12/26/18 21:49 seafood Allergy Severe Difficulty Uncoded 12/26/18 21:49 Breathing Home Medications: Ambulatory Orders Alprazolam [Xanax] 0.5 mg PO PRN PRN 05/03/17 Quetiapine Fumarate [Seroquel] 50 mg PO HS 05/03/17 Famotidine [Pepcid] 20 mg PO BID #60 tablet 05/05/17 Ibuprofen 200 mg PO PRN PRN 05/05/17 Review of Systems - Review of Systems Constitutional: No: Chills, Diaphoresis, Fever, Loss of Appetite HEENTM: No: Blurred Vision Respiratory: No: Cough, Orthopnea, Shortness of Breath Cardiac (ROS): No: Chest Pain, Edema, Irregular Heart Rate ABD/GI: No: Diarrhea, Nausea, Vomiting : No: Burning, Dysuria, Discharge Integumentary: No: Bruising, Change in Color, Dryness, Erythema Neurological: No: Headache, Numbness, Paresthesia Psychiatric: No: Anxiety, Depression Hematologic/Lymphatic: No: Anemia, Blood Clots <Nichole Haney - Last Filed: 12/27/18 05:16> *Physical Exam - Vital Signs Last Vital Signs Temp Pulse Resp BP Pulse Ox 98.2 F 88 18 116/62 99 12/26/18 21:50 12/26/18 21:50 12/26/18 21:50 12/26/18 21:50 12/26/18 21:50 - Physical Exam General Appearance: Yes: Nourished, Appropriately Dressed. No: Apparent Distress HEENT: positive: EOMI, KRAIG, Normal ENT Inspection, Normal Voice Neck: positive: Trachea midline, Normal Thyroid, Supple. negative: Tender, Rigid Respiratory/Chest: positive: Lungs Clear, Normal Breath Sounds. negative: Chest Tender, Respiratory Distress Cardiovascular: positive: Regular Rhythm, Regular Rate Female Pelvic Exam: positive: normal external exam, cervical os closed, normal adnexa, discharge (brownish dicharge with mild blood). negative: CMT, lesions Gastrointestinal/Abdominal: positive: Normal Bowel Sounds, Flat, Soft. negative : Tender Musculoskeletal: positive: Normal Inspection. negative: Decreased Range of Motion Extremity: positive: Normal Capillary Refill, Normal Inspection, Normal Range of Motion. negative: Tender Integumentary: positive: Normal Color, Dry, Warm Neurologic: positive: Fully Oriented, Alert, Normal Mood/Affect, Normal Response , Motor Strength 5/5 <Nichole Haney - Last Filed: 12/27/18 05:16> - Vital Signs Last Vital Signs Temp Pulse Resp BP Pulse Ox 98.2 F 88 18 116/62 99 12/26/18 21:50 12/26/18 21:50 12/26/18 21:50 12/26/18 21:50 12/26/18 21:50 <Jeison Hendrix - Last Filed: 12/27/18 06:20> ED Treatment Course - LABORATORY CBC & Chemistry Diagram: 12/26/18 22:15 12/26/18 22:15 <Nichole Haney - Last Filed: 12/27/18 05:16> - LABORATORY CBC & Chemistry Diagram: 12/26/18 22:15 12/26/18 22:15 - ADDITIONAL ORDERS Additional order review: Laboratory Results 12/26/18 12/26/18 12/26/18 23:00 22:15 22:15 Sodium 137 Potassium 4.2 Chloride 104 Carbon Dioxide 28 Anion Gap 5 L BUN 12.5 Creatinine 0.8 Est GFR (CKD-EPI)AfAm 111.48 Est GFR (CKD-EPI)NonAf 96.19 Random Glucose 89 Calcium 8.9 Total Bilirubin 0.4 AST 26 ALT 48 Alkaline Phosphatase 73 Total Protein 7.0 Albumin 3.8 Beta HCG, Quant 121.7 Urine Color Yellow Urine Appearance Cloudy Urine pH 5.5 Ur Specific Phillips 1.028 Urine Protein Negative Urine Glucose (UA) Negative Urine Ketones Negative Urine Blood 3+ H Urine Nitrite Negative Urine Bilirubin Negative Urine Urobilinogen 1.0 Ur Leukocyte Esterase Negative Urine WBC (Auto) 1 Urine RBC (Auto) 14 Urine Casts (Auto) 15 U Pathogenic Cast Auto None seen U Epithel Cells (Auto) 15.2 Urine Bacteria (Auto) 347.5 Blood Type Cancelled Antibody Screen Cancelled 12/26/18 22:15 RBC 4.26 MCV 93.9 D MCHC 33.4 RDW 12.8 MPV 7.1 L D Neutrophils % 61.6 Lymphocytes % 27.7 Monocytes % 7.7 Eosinophils % 2.0 Basophils % 1.0 <Jeison Hendrix - Last Filed: 12/27/18 06:20> Medical Decision Making - Medical Decision Making 33 year old female 4 weeks by LMP presenting with brownish discharge. Cervix closed, no adnexal fullness. LABS WNL BHCG 121. TVUS not evidencing any IUP. Cervix closed so likely complete vs. threatened . RH+ and patient sent home with instructions to follow up in two days. 12/26/18 23:02 <Nichole Haney - Last Filed: 12/27/18 05:16> *DC/Admit/Observation/Transfer - Discharge Dispostion Decision to Admit order: No <Nichole Haney - Last Filed: 12/27/18 05:16> - Attestations Physician Attestion: 12/27/18 06:19 I have reviewed the plan as documented and agree with current plan as documented. Electronically co-signed by Jeison Hendrix MD <Jeison Hendrix - Last Filed: 12/27/18 06:20> Diagnosis at time of Disposition: Vaginal discharge - Discharge Dispostion Disposition: HOME Condition at time of disposition: Stable - Referrals Referrals: Kevan Paez [Primary Care Provider] - Ryan Plummer MD [Staff Physician] - - Patient Instructions Printed Discharge Instructions: DI for Threatened Additional Instructions: We are unsure if this is an early at risk of miscarriage or a completed miscarriage. Please return in two days for a repeat blood work and maybe a repeat US. Please return earlier if you have any issues including worsening bleeding, fevers, chills, chest pain or other symptoms. - Post Discharge Activity
[2018-12-26 22:32] LABS: EPI CELLS 15.2 /HPF (0-5/HPF); HYALINE CASTS 15 /lpf (0-8); PH,URINE 5.5 (5.0-8.0); URINE APPEARANCE CLOUDY; URINE BACTERIA 347.5 /hpf (NEGATIVE); URINE BILIRUBIN NEGATIVE (NEGATIVE); URINE COLOR YELLOW; URINE GLUCOSE (UA) NEGATIVE (NEGATIVE); URINE KETONE NEGATIVE (NEGATIVE); URINE LEUK ESTERASE NEGATIVE (NEGATIVE); URINE NITRITE NEGATIVE (NEGATIVE); URINE PROTEIN NEGATIVE (NEGATIVE); URINE RBC 14 /hpf (0-4); URINE WBC 1 /hpf (0-5)
--- NOTE | 2018-12-26 23:09 | PDOC ---
Documentation entered by Jose C Starkey SCRIBE, acting as scribe for Jeison Hendrix MD. Jeison Hendrix MD: This documentation has been prepared by the Lalito garcia Daniel, SCRIBE, under my direction and personally reviewed by me in its entirety. I confirm that the documentation accurately reflects all work, treatment, procedures, and medical decision making performed by me. Attending Attestation - Resident Resident Name: MedinaAlbinokaykay - ED Attending Attestation I have performed the following: I have examined & evaluated the patient, The case was reviewed & discussed with the resident, I agree w/resident's findings & plan, Exceptions are as noted - HPI HPI: 12/26/18 22:39 The patient is a 33 year old female (3 prior miscarriagees) with a past medical history of asthma and bipolar disorder here today for evaluation of vaginal discharge. The patient reports that she is 4 weeks confirmed at [facility] and that she has had brown vaginal discharge with clots for the past few days. She denies any associated pain. Patient denies headache, lightheadedness. Denies fever, chills. Denies chest pain, shortness of breath. Denies nausea, vomiting, diarrhea, abdominal pain. Allergies: penicillins, seafood PCP: Kevan Paez 12/26/18 23:08 - Physicial Exam PE: 12/26/18 22:52 agree with the resident's exam. - Medical Decision Making 12/26/18 23:08 concern for threatened / missed labs hcg quant TVUS dispo per TVUS
== END 2018-12-26 23:50 | disposition home or self-care (01) ==
LOC: JER 21:44
DX: O26.891 Other specified pregnancy related conditions, first trimester (principal); O20.0 Threatened abortion; N89.8 Other specified noninflammatory disorders of vagina; Z3A.01 Less than 8 weeks gestation of pregnancy
CPT/HCPCS: 36415; 76817-TC; 80053; 81003; 84702; 85025; 87086; 87491; 87591; 99282-25

== ENCOUNTER 2019-10-24 10:26 | Emergency (ER) | payer OTHER ==
[2019-10-24 10:44] VITALS: BP 98/78; PULSE 70; TEMP 98.1; BMI 23.3
[2019-10-24] MEDS ORDERED: KETOROLAC TROMETHAMINE 60 MG/2 ML VIAL IM ONE (11:02)
[2019-10-24] MEDS ORDERED: ALPRAZolam 0.25 MG TABLET PO ONE (11:06)
[2019-10-24] MEDS ORDERED: ALPRAZolam 0.25 MG TABLET ONE (11:13)
[2019-10-24] MEDS ORDERED: KETOROLAC TROMETHAMINE 60 MG/2 ML VIAL ONE (11:14)
--- NOTE | 2019-10-24 12:41 | PDOC ---
Documentation entered by Lindy Byrne SCRIBE, acting as scribe for Maurice Stallworth MD. Maurice Stallworth MD: This documentation has been prepared by the rubinaeCaty Sydney, SCRIBE, under my direction and personally reviewed by me in its entirety. I confirm that the documentation accurately reflects all work, treatment, procedures, and medical decision making performed by me. History of Present Illness - General Stated Complaint: BACK PAIN History Source: Patient Exam Limitations: No Limitations - History of Present Illness Initial Comments: 10/24/19 11:04 The patient is a 33 year old with a past medical history of asthma and bipolar disorder (compliant with xanax and seroquel) who presents to the ED with right- sided upper back pain for several days. Patient describes her pain as constant, sharp, radiating to her neck and down her R arm. Patient reports she went to [facility], where she was given toradol, benadryl, and valium for her pain with no relief. Patient states she tested positive for covid one month ago. Pt denies any recent falls, trauma or injuries. Patient denies chest pain, SOB, headache, lightheadedness. Denies fever, chills, nausea, vomiting, diarrhea. Allergies: penicillins, seafood PCP: Kevan Paez Past History - Medical History Allergies/Adverse Reactions: Allergies Allergy/AdvReac Type Severity Reaction Status Date / Time Penicillins Allergy Mild Rash Verified 12/26/18 21:49 seafood Allergy Severe Difficulty Uncoded 12/26/18 21:49 Breathing Home Medications: Ambulatory Orders Alprazolam [Xanax] 0.5 mg PO PRN PRN 05/03/17 Quetiapine Fumarate [Seroquel] 50 mg PO HS 05/03/17 Famotidine [Pepcid] 20 mg PO BID #60 tablet 05/05/17 Ibuprofen 200 mg PO PRN PRN 05/05/17 Anemia: No Asthma: No Cancer: No Cardiac Disorders: No CVA: No COPD: No CHF: No Dementia: No Diabetes: No GI Disorders: No Disorders: No HTN: No Hypercholesterolemia: No Liver Disease: No Psychiatric Problems: Yes (anxiety, depression and bipolar) Seizures: No Thyroid Disease: No - Surgical History Abdominal Surgery: No Cholecystectomy: Yes Gastric Stapling: Yes (sleeve 2018) - Reproductive History (#): 5 Para: 3 Therapeutic (s) & number: No Spontaneous : 1 - Immunization History Immunization Up to Date: Yes - Psycho-Social/Smoking History Smoking Status: Yes Smoking History: Current some day smoker Have you smoked in the past 12 months: Yes Number of Cigarettes Smoked Daily: 3 Review of Systems - Review of Systems Able to Perform ROS?: Yes Comments:: 10/24/19 11:05 CONSTITUTIONAL: No fever, no chills, no fatigue EYES: No visual changes ENT: No ear pain, no sore throat CARDIOVASCULAR: No chest pain, no palpitations RESPIRATORY: No cough, no SOB GI: No abdominal pain, no nausea, no vomiting, no constipation, no diarrhea GENITOURINARY: No dysuria, no frequency, no hematuria MUSKULOSKELETAL: + right-sided upper back pain radiating to her neck and R arm. SKIN: No rash NEURO: No headache *Physical Exam - Physical Exam 10/24/19 12:35 EXAMINATION CONSTITUTIONAL: Well-appearing; well-nourished; in no apparent distress HEAD: Normocephalic; atraumatic EYES: PERRL; EOM intact ENMT: External appears normal; normal oropharynx NECK: Supple; + extensive right paraspinal tender along c2-c6, with ttp along the right trapezius and right sternocleidomasoid; no cervical lymphadenopathy CARD: Normal S1, S2; no murmurs, rubs, or gallops RESP: Normal chest excursion with respiration; breath sounds clear and equal bilaterally; no wheezes, rhonchi, or rales ABD: Soft, non-distended; non-tender; no palpable organomegaly, no palpable hernias EXT: no obvious deform; Normal ROM in all four extremities; non-tender to palpation; distal pulses intact SKIN: Warm, dry, no rash NEURO: aox3; cn ii-xii grossly intact, motor:5/5x4; sensation and poprioception intact b/l. gait-stable Medical Decision Making - Medical Decision Making 10/24/19 12:37 Patient is a 33-year-old female with history of bipolar disorder presents with signs and symptoms of torticollis with right cervical radiculopathy. No evidence of cord compression is noted. Patient is nonfocal neurologically. Patient seen for same at [facility] 1 day prior. Cervical spine x-ray (although incomplete without revealing adequate number vertebra) r eveals no evidence of misalignment. Patient received Toradol and additional dose of Xanax and has been noted to be resting comfortably. Will discharge with instructions to continue with NSAIDs but to discontinue cyclobenzaprine due to interaction with Seroquel. Discharge - Discharge Information Problems reviewed: Yes Clinical Impression/Diagnosis: Acute torticollis, Arm paresthesia, right Condition: Stable Disposition: HOME - Follow up/Referral Referrals: Kevan Paez [Non Staff, Medical] - - Patient Discharge Instructions Patient Printed Discharge Instructions: DI for Neck Pain, DI for Numbness/tingling Additional Instructions: Please do not take cyclobenzaprine as it interacts with Seroquel. Continue taking ibuprofen every 6 hours with food. Apply heating pad. Return immediately for severe numbness, severe pain. Print Language: TOGOLESE - Post Discharge Activity
== END 2019-10-24 13:03 | disposition home or self-care (01) ==
LOC: JER 10:26
PROC: 3E023GC Introduction of Other Therapeutic Substance into Muscle, Percutaneous Approach (ICD-10-PCS; principal; 2019-10-24)
DX: M43.6 Torticollis (principal); R20.2 Paresthesia of skin
CPT/HCPCS: 72050-TC-FY; 99284-25

== ENCOUNTER 2020-12-29 22:01 | Emergency (ER) | payer OTHER ==
[2020-12-29 22:25] VITALS: TEMP 97.9; BMI 25.0
[2020-12-29] MEDS ORDERED: ACETAMINOPHEN 1000 MG/100 ML VIAL (NON FORMULARY) IVPB ONE (23:15)
[2020-12-29] MEDS ORDERED: SODIUM CHLORIDE 0.9% 500 ML INFUS.BAG IV ONE (23:15)
[2020-12-29 23:25] LABS: URINE APPEARANCE CLEAR; URINE BILIRUBIN NEGATIVE (NEGATIVE); URINE COLOR YELLOW; URINE GLUCOSE (UA) NEGATIVE (NEGATIVE); URINE KETONE NEGATIVE (NEGATIVE); URINE LEUK ESTERASE NEGATIVE (NEGATIVE); URINE NITRITE NEGATIVE (NEGATIVE); URINE PROTEIN NEGATIVE (NEGATIVE); URINE UROBILINOGEN 0.2 mg/dL (0.2-1.0)
[2020-12-29] MEDS ORDERED: ACETAMINOPHEN INJECTION 100 ML IVPB ONE (23:27)
[2020-12-29 23:29] LABS: BASO % 0.8 % (0-2.0); EOS % 5.1 % (0-4.5); HEMATOCRIT 30.7 % (32.4-45.2); HEMOGLOBIN 10.1 GM/dL (10.7-15.3); LYMPH % 28.3 % (8-40); MCH 25.4 pg (25.7-33.7); MCHC 32.8 g/dl (32.0-36.0); MEAN CELL VOLUME 77.4 fl (80-96); MEAN PLT VOLUME 8.5 fl (7.5-11.1); MONO % 5.9 % (3.8-10.2); NEUT % 59.9 % (42.8-82.8); PLATELET COUNT 234 10^3/uL (134-434); RBC 3.96 M/mm3 (3.60-5.2); RDW 16.1 % (11.6-15.6); WHITE BLOOD COUNT 7.2 K/mm3 (4.0-10.0)
[2020-12-29 23:47] LABS: CHLORIDE 111 mmol/L (98-107); SODIUM 141 mmol/L (136-145)
[2020-12-29 23:50] LABS: ALBUMIN 3.4 g/dl (3.4-5.0); ANION GAP 6 MMOL/L (8-16); CO2 24 mmol/L (21-32); GLUCOSE,RANDOM 98 mg/dL (74-106); LIPASE 248 U/L (73-393)
[2020-12-29 23:53] LABS: CREATININE 0.8 mg/dL (0.55-1.3); SGOT/AST 18 U/L (15-37); SGPT/ALT 11 U/L (13-61)
[2020-12-29 23:54] LABS: BILIRUBIN,TOTAL 0.3 mg/dL (0.2-1)
[2020-12-29 23:55] LABS: TOT PROT 6.2 g/dl (6.4-8.2)
[2020-12-29 23:56] LABS: ALK PHOS 35 U/L (45-117)
[2020-12-30] MEDS ORDERED: MORPHINE SULFATE 2 MG/ML VIAL ONE (01:36)
[2020-12-30] MEDS ORDERED: morphine CARPU-JECT 4 MG/1 ML DISP.SYRIN IM ONE (01:36)
[2020-12-30 01:40] VITALS: BP 102/65; PULSE 56
== END 2020-12-30 02:23 | disposition left against medical advice (07) ==
LOC: JER 22:01
PROC: 3E033NZ Introduction of Analgesics, Hypnotics, Sedatives into Peripheral Vein, Percutaneous Approach (ICD-10-PCS; principal; 2020-12-29)
PROC: 3E023NZ Introduction of Analgesics, Hypnotics, Sedatives into Muscle, Percutaneous Approach (ICD-10-PCS; 2020-12-30)
DX: R10.10 Upper abdominal pain, unspecified (principal)
CPT/HCPCS: 36415; 74177-TC; 76705-TC; 80053; 81003; 83690; 84484; 84703; 85025; 87086; 87186; 93005; 93010; 99285-25; J0131

== ENCOUNTER 2021-09-30 20:21 | Emergency (ER) | payer OTHER ==
[2021-09-30 20:40] VITALS: BP 105/69; PULSE 58; TEMP 98.2; BMI 25.0
[2021-09-30] MEDS ORDERED: LIDOCAINE VISCOUS 2% ORAL/TOP 15 ML UNIT-DOSE CUP MM ONE (21:28)
[2021-09-30] MEDS ORDERED: LIDOCAINE VISCOUS 2% ORAL/TOP 15 ML UNIT-DOSE CUP ONE (21:31)
[2021-09-30] MEDS ORDERED: DEXAMETHASONE SOD PHOSPHATE 10 MG/1 ML VIAL IM ONE (21:34)
[2021-09-30] MEDS ORDERED: DEXAMETHASONE SOD PHOSPHATE 10 MG/1 ML VIAL ONE (21:36)
== END 2021-09-30 21:56 | disposition home or self-care (01) ==
LOC: JER 20:21
PROC: 3E023GC Introduction of Other Therapeutic Substance into Muscle, Percutaneous Approach (ICD-10-PCS; principal; 2021-09-30)
DX: R07.0 Pain in throat (principal)
CPT/HCPCS: 87070; 99284-25; J1100

== ENCOUNTER 2022-02-17 17:17 | Inpatient (IN) | payer OTHER ==
[2022-02-17 17:39] VITALS: BMI 25.0
[2022-02-17] MEDS ORDERED: FAMOTIDINE 20 MG/50 ML IVPB 20 MG/50 ML MG IVPB ONE ×2 (19:02→19:17)
[2022-02-17] MEDS ORDERED: ONDANSETRON 4 MG/2 ML VIAL IVPUSH ONE (19:02)
[2022-02-17] MEDS ORDERED: morphine CARPU-JECT 4 MG/1 ML DISP.SYRIN IVPUSH ONE (19:03)
[2022-02-17] MEDS ORDERED: ONDANSETRON 4 MG/2 ML VIAL ONE (19:16)
[2022-02-17] MEDS ORDERED: morphine SULFATE 4 MG/ML VIAL ONE (19:16)
[2022-02-17 19:19] LABS: BASO % 1.2 % (0-2.0); EOS % 3.8 % (0-4.5); HEMATOCRIT 34.1 % (32.4-45.2); LYMPH % 29.7 % (8-40); MCHC 32.3 g/dl (32.0-36.0); MEAN CELL VOLUME 80.5 fl (80-96); MEAN PLT VOLUME 8.6 fl (7.5-11.1); MONO % 7.2 % (3.8-10.2); NEUT % 58.1 % (42.8-82.8); PLATELET COUNT 266 10^3/uL (134-434); RBC 4.24 M/mm3 (3.60-5.2); WHITE BLOOD COUNT 8.1 K/mm3 (4.0-10.0)
[2022-02-17 19:22] LABS: URINE APPEARANCE CLEAR; URINE BILIRUBIN NEGATIVE (NEGATIVE); URINE COLOR YELLOW; URINE GLUCOSE (UA) NEGATIVE (NEGATIVE); URINE KETONE TRACE (NEGATIVE); URINE LEUK ESTERASE NEGATIVE (NEGATIVE); URINE NITRITE NEGATIVE (NEGATIVE); URINE PROTEIN NEGATIVE (NEGATIVE); URINE UROBILINOGEN 0.2 mg/dL (0.2-1.0)
[2022-02-17 19:24] LABS: HCG,QUALITATIVE URINE Negative
[2022-02-17 19:41] LABS: ALBUMIN 3.7 g/dl (3.4-5.0); BLOOD UREA NITROGEN 13.1 mg/dL (7-18); CALCIUM 8.8 mg/dL (8.5-10.1)
[2022-02-17 19:44] LABS: CREATININE 0.8 mg/dL (0.55-1.3)
[2022-02-17 19:45] LABS: BILIRUBIN,TOTAL 0.2 mg/dL (0.2-1); TOT PROT 6.8 g/dl (6.4-8.2)
[2022-02-17] MEDS ORDERED: morphine CARPU-JECT 2 MG/1 ML DISP.SYRIN IVPUSH ONE (20:03)
[2022-02-17] MEDS ORDERED: SODIUM CHLORIDE 0.9% 500 ML INFUS.BAG IV ONE (20:06)
[2022-02-17] MEDS ORDERED: KETOROLAC TROMETHAMINE 30 MG/1 ML VIAL IVPUSH ONE (23:41)
[2022-02-17] MEDS ORDERED: KETOROLAC TROMETHAMINE 30 MG/1 ML VIAL ONE (23:50)
[2022-02-18] MEDS ORDERED: SODIUM CHLORIDE 0.9% 500 ML INFUS.BAG IV ONE (02:13)
[2022-02-18] MEDS ORDERED: QUEtiapine FUMARATE 100 MG TABLET (FP) PO ONE (02:14)
[2022-02-18] MEDS ORDERED: QUEtiapine FUMARATE 100 MG TABLET (FP) ONE (02:28)
[2022-02-18] MEDS ORDERED: morphine CARPU-JECT 2 MG/1 ML DISP.SYRIN IVPUSH PRN (04:14)
[2022-02-18] MEDS ORDERED: SODIUM CHLORIDE 1,000 ML IV SCH ×2 (04:15→09:03)
[2022-02-18] MEDS ORDERED: ACETAMINOPHEN 1000 MG/100 ML BAG IVPB SCH ×2 (04:45→06:32)
[2022-02-18] MEDS ORDERED: SODIUM CHLORIDE 1,000 ML IV STA (05:06)
[2022-02-18 06:23] LABS: HEMATOCRIT 27.7 % (32.4-45.2); HEMOGLOBIN 8.8 GM/dL (10.7-15.3); MCH 25.7 pg (25.7-33.7); MCHC 31.8 g/dl (32.0-36.0); MEAN CELL VOLUME 80.9 fl (80-96); MEAN PLT VOLUME 8.9 fl (7.5-11.1); PLATELET COUNT 184 10^3/uL (134-434); RBC 3.42 M/mm3 (3.60-5.2); RDW 14.9 % (11.6-15.6); WHITE BLOOD COUNT 5.1 K/mm3 (4.0-10.0)
[2022-02-18 06:47] LABS: BLOOD UREA NITROGEN 12.4 mg/dL (7-18); MAGNESIUM 1.9 mg/dL (1.8-2.4)
[2022-02-18 06:49] LABS: CREATININE 0.7 mg/dL (0.55-1.3); PHOSPHOROUS 3.6 mg/dL (2.5-4.9)
[2022-02-18 06:52] LABS: BILIRUBIN,TOTAL 0.3 mg/dL (0.2-1)
[2022-02-18 06:58] LABS: ALBUMIN 2.8 g/dl (3.4-5.0); CALCIUM 7.3 mg/dL (8.5-10.1)
[2022-02-18] MEDS ORDERED: PANTOPRAZOLE SODIUM 40 MG VIAL IVPUSH SCH (10:00)
[2022-02-18] MEDS ORDERED: ENOXAPARIN NA (PORCINE) 40 MG/0.4 ML DISP.SYRIN SQ SCH (10:00)
[2022-02-18] MEDS ORDERED: POLYETHYLENE GLYCOL (HEALTHYLAX) 3350 17 GM PACKET PO SCH (12:00)
[2022-02-18 12:30] LABS: IRON SERUM 67 ug/dL (50-175); TOTAL IRON BINDING CAPACITY 333 ug/dL (250-450)
[2022-02-18 15:37] VITALS: BP 89/56; PULSE 63; RESP 18; TEMP 98.9
[2022-02-18 16:37] LABS: BASO % 0.6 % (0-2.0); EOS % 3.1 % (0-4.5); HEMATOCRIT 29.6 % (32.4-45.2); HEMOGLOBIN 9.3 GM/dL (10.7-15.3); LYMPH % 19.9 % (8-40); MCH 25.5 pg (25.7-33.7); MCHC 31.6 g/dl (32.0-36.0); MEAN CELL VOLUME 80.9 fl (80-96); MEAN PLT VOLUME 8.9 fl (7.5-11.1); MONO % 6.2 % (3.8-10.2); NEUT % 70.2 % (42.8-82.8); PLATELET COUNT 206 10^3/uL (134-434); RBC 3.66 M/mm3 (3.60-5.2); RDW 14.7 % (11.6-15.6); WHITE BLOOD COUNT 6.4 K/mm3 (4.0-10.0)
[2022-02-18] MEDS ORDERED: QUEtiapine FUMARATE 100 MG TABLET (FP) PO SCH (22:00)
== END 2022-02-18 17:33 | disposition home or self-care (01) | DRG 532 ==
LOC: JER 17:17 → JERBED 02-18 00:58 → J5S 02-18 07:26
PROVIDERS: ADMIT Internal Medicine; ATTEND Internal Medicine
DX: N83.201 Unspecified ovarian cyst, right side (principal); R10.11 Right upper quadrant pain; F41.8 Other specified anxiety disorders; F31.9 Bipolar disorder, unspecified; F17.210 Nicotine dependence, cigarettes, uncomplicated
CPT/HCPCS: 36415; 74018-TC-FY; 74177-TC; 76830-TC; 80053; 81003; 82607; 82746; 83540; 83550; 83690; 83735; 84100; 84703; 85025; 85027; 87086; 94010; 99291; C9803-CS; Q9967; U0003; U0005

== ENCOUNTER 2022-09-05 12:53 | Emergency (ER) | payer OTHER ==
[2022-09-05 12:59] VITALS: RESP 18; TEMP 99.1; BMI 25.0
[2022-09-05] MEDS ORDERED: IBUPROFEN 600 MG TABLET (FP) PO ONE ×2 (14:36→14:37)
[2022-09-05] MEDS ORDERED: METHOCARBAMOL 500 MG TABLET PO ONE (14:36)
[2022-09-05] MEDS ORDERED: METHOCARBAMOL 500 MG TABLET ONE (14:37)
[2022-09-05 14:51] VITALS: BP 100/64; PULSE 70
== END 2022-09-05 14:52 | disposition home or self-care (01) ==
LOC: JER 12:53 → JERFT 12:53
DX: S10.93XA Contusion of unspecified part of neck, initial encounter (principal); V49.50XA Passenger injured in collision with unspecified motor vehicles in traffic accident, initial encounter
CPT/HCPCS: 99283-25

== ENCOUNTER 2022-10-10 21:54 | Emergency (ER) | payer OTHER ==
[2022-10-10 22:20] VITALS: BP 94/57; PULSE 79; RESP 18; TEMP 99.1; BMI 24.4
[2022-10-10] MEDS ORDERED: DEXAMETHASONE SOD PHOSPHATE 10 MG/1 ML VIAL IVPUSH ONE (23:00)
[2022-10-10] MEDS ORDERED: FAMOTIDINE 20 MG/50 ML IVPB 20 MG/50 ML MG IVPB ONE ×2 (23:00→23:17)
[2022-10-10] MEDS ORDERED: methylPREDNISolone NA SUCC 125 MG/2 ML VIAL IVPB ONE (23:10)
[2022-10-10] MEDS ORDERED: methylPREDNISolone NA SUCC 125 MG/2 ML VIAL ONE (23:17)
[2022-10-10] MEDS ORDERED: FAMOTIDINE 10 MG TABLET PO ONE (23:53)
[2022-10-10] MEDS ORDERED: DEXAMETHASONE SOD PHOSPHATE 10 MG/1 ML VIAL PO ONE (23:53)
[2022-10-10] MEDS ORDERED: FAMOTIDINE 20 MG TABLET ONE (23:56)
[2022-10-10] MEDS ORDERED: DEXAMETHASONE SOD PHOSPHATE 10 MG/1 ML VIAL ONE (23:56)
[2022-10-11] MEDS ORDERED: ERYTHROMYCIN 0.5% OPHTHALMIC OINTMENT 3.5 GM TUBE OU STA ×2 (00:13→00:20)
[2022-10-11] MEDS ORDERED: ERYTHROMYCIN 0.5% OPHTHALMIC OINTMENT 3.5 GM TUBE ONE (00:18)
== END 2022-10-11 00:30 | disposition home or self-care (01) ==
LOC: JER 21:54
PROC: 3E033GC Introduction of Other Therapeutic Substance into Peripheral Vein, Percutaneous Approach (ICD-10-PCS; principal; 2022-10-10)
DX: T78.40XA Allergy, unspecified, initial encounter (principal); L30.9 Dermatitis, unspecified; H53.8 Other visual disturbances
CPT/HCPCS: 99284-25; J1100

== ENCOUNTER 2023-01-30 02:11 | Emergency (ER) | payer OTHER ==
[2023-01-30 02:18] VITALS: BP 101/68; PULSE 95; RESP 18; TEMP 97.8; BMI 26.4
[2023-01-30 03:50] LABS: BASO % 0.9 % (0-2.0); EOS % 2.2 % (0-4.5); HEMATOCRIT 34.4 % (32.4-45.2); HEMOGLOBIN 11.4 GM/dL (10.7-15.3); LYMPH % 27.1 % (8-40); MCH 25.5 pg (25.7-33.7); MCHC 33.2 g/dl (32.0-36.0); MEAN CELL VOLUME 76.6 fl (80-96); MEAN PLT VOLUME 8.4 fl (7.5-11.1); MONO % 5.8 % (3.8-10.2); PLATELET COUNT 231 10^3/uL (134-434); WHITE BLOOD COUNT 6.4 K/mm3 (4.0-10.0)
[2023-01-30 04:00] LABS: INR 1.15 (0.83-1.09); PROTHROMBIN TIME (PATIENT) 13.3 SEC (9.7-13.0)
[2023-01-30 04:01] LABS: POTASSIUM 3.9 mmol/L (3.5-5.1)
[2023-01-30 04:03] LABS: ACTIVATED PTT 36.7 SECONDS (25.2-36.5); ALBUMIN 4.5 g/dl (3.4-5.0); CALCIUM 8.7 mg/dL (8.5-10.1); MAGNESIUM 2.4 mg/dL (1.8-2.4)
[2023-01-30 04:04] LABS: BLOOD UREA NITROGEN 5.8 mg/dL (7-18)
[2023-01-30 04:06] LABS: CREATININE 0.8 mg/dL (0.55-1.3)
[2023-01-30 04:08] LABS: BILIRUBIN,TOTAL 0.3 mg/dL (0.2-1); TOT PROT 8.1 g/dl (6.4-8.2)
[2023-01-30 04:12] LABS: N-TERMINAL BNP 10.4 pg/ml (5-125)
== END 2023-01-30 05:03 | disposition home or self-care (01) ==
LOC: JER 02:11
DX: R00.2 Palpitations (principal); F14.90 Cocaine use, unspecified, uncomplicated
CPT/HCPCS: 36415; 71045-TC-FY; 80053; 83735; 83880; 84443; 84484; 84703; 85025; 85610; 85730; 93005; 93010; 99285-25

== ENCOUNTER 2023-07-10 18:36 | Emergency (ER) | payer OTHER ==
[2023-07-10 18:49] VITALS: BP 91/54; PULSE 80; RESP 18; TEMP 98.6; BMI 25.0
[2023-07-10] MEDS ORDERED: ACETAMINOPHEN INJECTION 100 ML IVPB ONE (20:15)
[2023-07-10] MEDS ORDERED: FAMOTIDINE 20 MG/50 ML IVPB 20 MG/50 ML MG IVPB ONE (20:15)
[2023-07-10] MEDS: FAMOTIDINE 20 MG/50 ML IVPB 20 MG/50 ML MG IVPB ONE (20:21)
[2023-07-10] MEDS: ACETAMINOPHEN 1000 MG/100 ML BAG IVPB ONE (20:21)
[2023-07-10 20:24] LABS: URINE APPEARANCE CLEAR; URINE BILIRUBIN NEGATIVE (NEGATIVE); URINE COLOR YELLOW; URINE GLUCOSE (UA) NEGATIVE (NEGATIVE); URINE KETONE TRACE (NEGATIVE); URINE LEUK ESTERASE NEGATIVE (NEGATIVE); URINE NITRITE NEGATIVE (NEGATIVE); URINE PROTEIN NEGATIVE (NEGATIVE)
[2023-07-10 20:25] LABS: BASO % 0.7 % (0-2.0); EOS % 4.3 % (0-4.5); HEMATOCRIT 31.1 % (32.4-45.2); HEMOGLOBIN 10.1 GM/dL (10.7-15.3); LYMPH % 22.9 % (8-40); MCH 24.8 pg (25.7-33.7); MCHC 32.4 g/dl (32.0-36.0); MEAN CELL VOLUME 76.4 fl (80-96); MEAN PLT VOLUME 8.6 fl (7.5-11.1); MONO % 5.6 % (3.8-10.2); NEUT % 66.5 % (42.8-82.8); PLATELET COUNT 260 10^3/uL (134-434); RBC 4.07 M/mm3 (3.60-5.2); RDW 15.3 % (11.6-15.6)
[2023-07-10 20:28] LABS: INR 0.97 (0.83-1.09); PROTHROMBIN TIME (PATIENT) 11.3 SEC (9.7-13.0)
[2023-07-10 20:31] LABS: ACTIVATED PTT 31.5 SECONDS (25.2-36.5)
[2023-07-10 20:37] LABS: CALCIUM 8.5 mg/dL (8.5-10.1)
[2023-07-10 20:38] LABS: ALBUMIN 3.6 g/dl (3.4-5.0); BLOOD UREA NITROGEN 12.8 mg/dL (7-18)
[2023-07-10 20:41] LABS: CREATININE 0.7 mg/dL (0.55-1.3)
[2023-07-10 20:42] LABS: BILIRUBIN,TOTAL 0.2 mg/dL (0.2-1)
[2023-07-10 20:43] LABS: TOT PROT 6.9 g/dl (6.4-8.2)
== END 2023-07-10 22:52 | disposition home or self-care (01) ==
LOC: JER 18:36
PROC: 3E033GC Introduction of Other Therapeutic Substance into Peripheral Vein, Percutaneous Approach (ICD-10-PCS; principal; 2023-07-10)
PROC: 3E033NZ Introduction of Analgesics, Hypnotics, Sedatives into Peripheral Vein, Percutaneous Approach (ICD-10-PCS; 2023-07-10)
DX: R10.9 Unspecified abdominal pain (principal); K29.70 Gastritis, unspecified, without bleeding
CPT/HCPCS: 36415; 74177-TC; 76705-TC; 80053; 81003; 83605; 83690; 84703; 85025; 85610; 85730; 86850; 86900; 86901; 87086; 93005; 93010; 99285-25; J0131; Q9967

== ENCOUNTER 2023-10-17 20:51 | Emergency (ER) | payer OTHER ==
[2023-10-17 20:57] VITALS: BP 109/73; PULSE 90; RESP 20; TEMP 98.6; BMI 25.7
[2023-10-17] MEDS ORDERED: CEPHALEXIN MONOHYDRATE 500 MG CAPSULE (UD) ONE (22:23)
[2023-10-17] MEDS ORDERED: ACETAMINOPHEN 500 MG TABLET (FP) ONE (22:23)
[2023-10-17] MEDS: ACETAMINOPHEN 500 MG TABLET (FP) PO ONE (22:25)
[2023-10-17] MEDS: CEPHALEXIN MONOHYDRATE 500 MG CAPSULE (UD) PO ONE (22:25)
== END 2023-10-17 22:25 | disposition home or self-care (01) ==
LOC: JERFT 20:51
DX: H66.92 Otitis media, unspecified, left ear (principal)
CPT/HCPCS: 99283-25

== ENCOUNTER 2023-12-16 19:18 | Emergency (ER) | payer OTHER ==
[2023-12-16 19:31] VITALS: BP 97/68; PULSE 79; RESP 19; TEMP 97.8; BMI 25.7
== END 2023-12-16 20:58 | disposition home or self-care (01) ==
LOC: JER 19:18 → JERFT 19:18
DX: L25.0 Unspecified contact dermatitis due to cosmetics (principal); L29.9 Pruritus, unspecified; H05.223 Edema of bilateral orbit
CPT/HCPCS: 99283-25

== ENCOUNTER 2024-02-09 14:00 | Emergency (ER) | payer OTHER ==
[2024-02-09 14:09] VITALS: BP 106/67; PULSE 80; RESP 20; TEMP 98; BMI 25.7
[2024-02-09] MEDS ORDERED: KETOROLAC TROMETHAMINE 30 MG/1 ML VIAL ONE (14:32)
[2024-02-09] MEDS: KETOROLAC TROMETHAMINE 30 MG/1 ML VIAL IM ONE (14:40)
== END 2024-02-09 14:41 | disposition home or self-care (01) ==
LOC: JERFT 14:00
PROC: 3E0133Z Introduction of Anti-inflammatory into Subcutaneous Tissue, Percutaneous Approach (ICD-10-PCS; principal; 2024-02-09)
DX: M54.50 Low back pain, unspecified (principal)
CPT/HCPCS: 99284-25